=== PATIENT | male | born 1955 | race Caucasian/White ===

== ENCOUNTER 2021-12-11 05:26 | Emergency (ER) | payer OTHER ==
[~2021-12-11] VITALS: Ht 185.4 cm; Wt 155.0 kg
[2021-12-11] MEDS ORDERED: LIDOCAINE 1% HCL (LOCAL ANESTH.) INJ 20ML MDV IJ ONE (08:00)
[2021-12-11 08:04] VITALS: BP 133/69
== END 2021-12-11 08:50 | disposition home or self-care (01) ==
LOC: ER 05:26
DX: S01.81XA Laceration without foreign body of other part of head, initial encounter (principal); I48.91 Unspecified atrial fibrillation; I10 Essential (primary) hypertension; W06.XXXA Fall from bed, initial encounter; Y93.89 Activity, other specified; Y92.89 Other specified places as the place of occurrence of the external cause; Y99.8 Other external cause status
CPT/HCPCS: 12002; 99282; J2001